=== PATIENT | female | born 1990 | race Caucasian/White ===

== ENCOUNTER 2019-10-10 16:34 | Emergency (ER) | payer OTHER ==
[~2019-10-10] VITALS: Ht 162.6 cm; Wt 59.0 kg
[2019-10-10] MEDS ORDERED: IV NORMAL SALINE 1000 ML BAG IV ONE (18:30)
[2019-10-10 18:53] LABS: BASOPHILS # (AUTO) 0.1 K/uL (0.0-8.0); BASOPHILS % (AUTO) 0.9 % (0.0-2.0); EOSINOPHILS # (AUTO) 0.1 K/uL (0.0-0.7); EOSINOPHILS % (AUTO) 1.3 % (0.0-7.0); HEMATOCRIT 38.4 % (31.2-41.9); HEMOGLOBIN 12.8 g/dL (10.9-14.3); LYMPHOCYTES # (AUTO) 2.3 K/uL (20.0-40.0); LYMPHOCYTES % (AUTO) 32.1 % (20.5-51.5); MEAN CORPUSCULAR HEMOGLOBIN 28.8 uug (24.7-32.8); MEAN CORPUSCULAR HGB CONC 33 g/dL (32.3-35.6); MEAN CORPUSCULAR VOLUME 86.8 fL (75.5-95.3); MONOCYTES # (AUTO) 0.7 K/uL (2.0-10.0); MONOCYTES % (AUTO) 9.5 % (0.0-11.0); NEUTROPHILS % (AUTO) 56.2 % (38.5-71.5); PLATELET COUNT (AUTO) 227 K/uL (179-408); RED BLOOD CELL COUNT(AUTO) 4.43 MIL/uL (3.63-4.92); WHITE BLOOD COUNT (AUTO) 7.2 K/uL (3.8-11.8)
[2019-10-10] MEDS ORDERED: IOHEXOL 300MG/ML 100 ML INFUS..BTL ONE (18:54)
[2019-10-10] MEDS ORDERED: IV NORMAL SALINE 0 ML IV ONE (18:54)
[2019-10-10] MEDS ORDERED: SWABABLE VALVE TRANSFER SET EA MC ONE (18:54)
[2019-10-10 18:56] LABS: CREATININE 0.6 mg/dL (0.6-1.3); POTASSIUM 4.4 mmol/L (3.5-5.1)
--- NOTE | 2019-10-10 19:05 | NUR ---
PATIENT WAS SEEN BY MD. STATES SHE FEELS "SOMETHING STRANGE IN THROAT". DENIES FEVER OR COUGH. IV START IS VERY DIFFICULT. ATTEMPT X2 UNSUCCESSFUL. OTHER RN TO ATTEMPT. LABS ALREADY DRAWN
--- NOTE | 2019-10-10 19:10 | NUR ---
HAND OFF REPORT GIVEN TO MARCE KOVACS
--- NOTE | 2019-10-10 19:20 | NUR ---
Tried to start IV on left AC but unsuccefull. Patient refusing to have another IV done. Informed Dr. Moran.
--- NOTE | 2019-10-10 19:25 | NUR ---
Dr Moran at bedside.
--- NOTE | 2019-10-10 19:30 | NUR ---
Patient does not wish to proceed with medical care recommended by Dr. Moran. Patient given information related to possible complications, up to and including , which could occur as a result of leaving the hospital at this time. Patient verbalizes understanding of risks involved due to leaving against medical advice. Patient has signed AMA form.
[2019-10-10 19:41] VITALS: BP 105/59
== END 2019-10-10 19:30 | disposition left against medical advice (07) ==
LOC: ER 16:34
DX: R22.1 Localized swelling, mass and lump, neck (principal); M54.2 Cervicalgia
CPT/HCPCS: 36415; 70360; 85025; A4663; J7030; J7050; Q9967